=== PATIENT | female | born 1930 | race Caucasian/White ===

== ENCOUNTER 2017-12-16 05:32 | Day surgery (SDC) | payer MEDICARE ==
[~2017-12-16] VITALS: Ht 152.4 cm; Wt 46.0 kg
[~2017-12-16 05:32] MED LIST: ALEN70TA5 PO; AMLO10TA2 PO; ASPI-496 PO; BUME0.5T PO; CALC500T93 PO; MAGN400C PO; POTA10TA31 PO
[2017-12-16 06:03] VITALS: BP 125/73
[2017-12-16] MEDS ORDERED: LACTATED RINGERS 1,000 ML IV SCH (06:05)
[2017-12-16] MEDS ORDERED: BACITRACIN 50,000 UNIT ONE (06:09)
[2017-12-16] MEDS ORDERED: BUPIVACAINE/PF-EPI 0.5% 1:200K ONE (06:09)
[2017-12-16 06:50] LABS: ALANINE AMINOTRANSFERASE 16 U/L (12-78); ALBUMIN 4.1 g/dL (3.4-5.0); ANION GAP 9 mmol/L (5-15); CALCIUM 9.2 mg/dL (8.5-10.1); CHLORIDE 108 mmol/L (98-107); CREATININE 1.29 mg/dL (0.55-1.02)
[2017-12-16 06:52] LABS: ALKALINE PHOSPHATASE 66 U/L (45-117); TOTAL PROTEIN 7.1 g/dL (6.4-8.2)
[2017-12-16] MEDS ORDERED: MIDAZOLAM 1 MG/ML, 5ML ONE (07:04)
[2017-12-16] MEDS ORDERED: DEXAMETHASONE 4 MG/ML, 1ML ONE (07:04)
[2017-12-16] MEDS ORDERED: FENTANYL PF 250 MCG/5ML ONE (07:04)
[2017-12-16] MEDS ORDERED: PROPOFOL 10 MG/ML, 20ML ONE (07:04)
[2017-12-16] MEDS ORDERED: CEFAZOLIN 1,000 MG ONE (07:04)
[2017-12-16] MEDS ORDERED: LABETALOL 5MG/ML, 20ML IV PRN (09:30)
[2017-12-16] MEDS ORDERED: MIDAZOLAM 1 MG/ML, 2ML IV PRN (09:30)
[2017-12-16] MEDS ORDERED: EPHEDRINE 50 MG/ML, 1ML IVPush PRN (09:30)
[2017-12-16] MEDS ORDERED: PROMETHAZINE 25 MG/ML, 1ML IV PRN (09:30)
[2017-12-16] MEDS ORDERED: ONDANSETRON ODT 8 MG PO PRN (09:30)
[2017-12-16] MEDS ORDERED: hydrALAzine 20 MG/ML, 1ML IV PRN (09:30)
[2017-12-16] MEDS ORDERED: ALBUTEROL SULFATE 2.5 MG/3 ML NPPB PRN (09:30)
[2017-12-16] MEDS ORDERED: FENTANYL PF 100 MCG/2ML IV PRN (09:30)
[2017-12-16] MEDS ORDERED: OXYcodone 5 MG/5 ML ORAL.SOL UDC PO PRN (09:30)
[2017-12-16] MEDS ORDERED: ACETAMINOPHEN 325 MG TABLET PO PRN (09:30)
[2017-12-16] MEDS ORDERED: HYDROcodone/APAP 7.5-325MG/15ML UDC PO PRN (09:30)
== END 2017-12-16 13:35 ==
LOC: OUT 05:32
PROVIDERS: ATTEND Orthopaedic Surgery
DX: M20.092 Other deformity of left finger(s) (principal); M19.042 Primary osteoarthritis, left hand; I12.9 Hypertensive chronic kidney disease with stage 1 through stage 4 chronic kidney disease, or unspecified chronic kidney disease; N18.9 Chronic kidney disease, unspecified; Z87.39 Personal history of other diseases of the musculoskeletal system and connective tissue; Z87.891 Personal history of nicotine dependence; Z86.718 Personal history of other venous thrombosis and embolism
CPT/HCPCS: 26850; 26860; 26861; 36415; 64415; 73120; 76001; 80053; 93005; C1776; J0690; J1100; J2250; J2704; J3010; J7120